=== PATIENT | female | born 1995 | race Two or more races ===

== ENCOUNTER 2017-01-20 14:13 | Emergency (ER) | payer BC ==
[~2017-01-20] VITALS: Ht 157.5 cm; Wt 77.1 kg
[2017-01-20 14:46] LABS: URINE SOURCE CLEAN CATCH
[2017-01-20 14:51] LABS: URINE APPEARANCE CLEAR; URINE BILIRUBIN NEG (NEG); URINE BLOOD TRACE (NEG); URINE COLOR YELLOW; URINE GLUCOSE NEG (NEG); URINE KETONE NEG (NEG); URINE LEUKOCYTE ESTERASE NEG (NEG); URINE NITRATE NEG (NEG); URINE PH 5.5 (5-8); URINE PROTEIN NEG (NEG); URINE SPECIFIC GRAVITY 1.031 (1.003-1.035); URINE UROBILINOGEN 0.2 MG/DL (NEG)
[2017-01-20 14:57] LABS: URBCS1 AUWI 0-2 /[HPF] (0-2); URINE BACTERIA AUWI NEG (NEGATIVE); URINE SQUAMOUS EPITHELIAL CELL NONE SEEN /[HPF]; UWBCS1 AUWI 0-2 (0-5)
[2017-01-20 15:00] LABS: CULTURE INDICATED? NO
== END 2017-01-20 15:10 | disposition home or self-care (01) ==
LOC: CFTX 14:13 → CED 14:13 → CFTX 15:02
PROVIDERS: Physician Assistant
DX: R10.2 Pelvic and perineal pain (principal); Z90.49 Acquired absence of other specified parts of digestive tract
CPT/HCPCS: 81003; 84703; 99284